=== PATIENT | male | born 1935 ===

== ENCOUNTER 2017-09-03 07:33 | Day surgery (SDC) | payer MEDICARE, MEDICAID ==
[2017-09-03 08:32] VITALS: BMI 42.0
[2017-09-03] MEDS ORDERED: Propofol 10 mg/ml Inj (20 ML) ONE (10:02)
[2017-09-03] MEDS ORDERED: Lidocaine Hydrochloride 5 ML INJ ONE (10:05)
[2017-09-03] MEDS ORDERED: Lactated Ringer's 500 ML IV SCH (10:15)
[2017-09-03 10:30] VITALS: TEMP 98.2
[2017-09-03 11:00] VITALS: O2SAT 99
[2017-09-03 11:01] VITALS: BP 130/71; PULSE 81; RESP 12
== END 2017-09-03 11:23 | disposition home or self-care (01) ==
LOC: C.ENDO 07:33
PROVIDERS: ATTEND Internal Medicine
DX: R19.4 Change in bowel habit (principal)
CPT/HCPCS: 45378; J2704; J7120